=== PATIENT | male | born 1995 | race Caucasian/White ===

== ENCOUNTER 2017-10-07 14:35 | Inpatient (IN) | payer OTHER ==
[~2017-10-07] VITALS: Ht 175.3 cm; Wt 81.9 kg
[2017-10-07] MEDS ORDERED: SODIUM CHLORIDE 0.9% 1,000ML IVBOLUS ONE (15:00)
[2017-10-07] MEDS ORDERED: SODIUM CHLORIDE FLUSH 10ML SYR IVF ONE (15:00)
[2017-10-07 15:15] LABS: BASOPHILS # (AUTO) 0.07 x10^3/uL (0-0.1); BASOPHILS % (AUTO) 0 % (0-1); EOSINOPHILS # (AUTO) 0.08 x10^3/uL (0-0.4); EOSINOPHILS % (AUTO) 0 % (1-7); LYMPHOCYTES # (AUTO) 2.23 x10^3/uL (1-3.4); LYMPHOCYTES % (AUTO) 13 % (22-44); MD NO; MEAN CORPUSCULAR HEMOGLOBIN 30.1 pg (27.5-34.5); MEAN CORPUSCULAR HGB CONC 33.9 g/dL (33.2-36.2); MEAN PLATELET VOLUME 8.3 fL (7.4-10.4); MONOCYTES # (AUTO) 0.85 x10^3/uL (0.2-0.8); MONOCYTES % (AUTO) 5 % (2-9); NEUTROPHILS # (AUTO) 14.01 x10^3/uL (1.8-6.8); NEUTROPHILS % (AUTO) 81 % (42-75); PLATELET COUNT 336 x10^3/uL (130-400); RED BLOOD COUNT 5.34 x10^6/uL (4.38-5.82); RED CELL DISTRIBUTION WIDTH 12.1 % (9.4-14.8)
[2017-10-07 15:23] LABS: ALBUMIN 3.9 g/dL (3.4-5.0); ANION GAP 9 mmol/L (5-15); CALCIUM 9.3 mg/dL (8.5-10.1); CHLORIDE 107 mmol/L (98-107)
[2017-10-07 15:27] LABS: ALANINE AMINOTRANSFERASE 65 U/L (12-78); ALKALINE PHOSPHATASE 99 U/L (45-117); BILIRUBIN,TOTAL 0.9 mg/dL (0.2-1.0); CREATININE 1.07 mg/dL (0.7-1.3); TOTAL PROTEIN 8.9 g/dL (6.4-8.2)
[2017-10-07] MEDS ORDERED: PIPERACILLIN/TAZO/PMX 4.5GM 100 ML IV ONE (15:30)
[2017-10-07 16:12] LABS: MICROSCOPIC INDICATED
[2017-10-07 16:14] LABS: CULTURE INDICATED? NO
[2017-10-07] MEDS ORDERED: MIDAZOLAM 1 MG/ML, 2ML ONE (16:31)
[2017-10-07] MEDS ORDERED: FENTANYL PF 250 MCG/5ML ONE ×2 (16:31→17:16)
[2017-10-07] MEDS ORDERED: BUPIVACAINE/PF 0.5% ONE (16:33)
[2017-10-07] MEDS ORDERED: EPINEPHRINE 1 MG/ML, 1ML ONE (16:33)
[2017-10-07] MEDS ORDERED: PROPOFOL 10 MG/ML, 20ML ONE ×2 (17:17)
[2017-10-07] MEDS ORDERED: SUCCINYLCHOLINE 20 MG/ML, 10ML ONE (17:20)
[2017-10-07] MEDS ORDERED: DEXAMETHASONE 4 MG/ML, 1ML ONE (17:20)
[2017-10-07] MEDS ORDERED: ONDANSETRON 2MG/ML, 2ML ONE (17:20)
[2017-10-07] MEDS ORDERED: EPHEDRINE 50 MG/ML, 1ML IVPush PRN (17:30)
[2017-10-07] MEDS ORDERED: PROMETHAZINE 25 MG/ML, 1ML IV PRN (17:30)
[2017-10-07] MEDS ORDERED: OXYcodone 5 MG/5 ML ORAL.SOL UDC PO PRN (17:30)
[2017-10-07] MEDS ORDERED: DIPHENHYDRAMINE 50 MG/ML, 1ML IVPush PRN (17:30)
[2017-10-07] MEDS ORDERED: PROMETHAZINE 25 MG SUPP PR PRN (17:30)
[2017-10-07] MEDS ORDERED: EPHEDRINE 50 MG/ML, 1ML IM PRN (17:30)
[2017-10-07] MEDS ORDERED: MORPHINE SULFATE 4 MG/ML, 1ML IVPush PRN (17:30)
[2017-10-07] MEDS ORDERED: ONDANSETRON ODT 8 MG PO PRN (17:30)
[2017-10-07] MEDS ORDERED: ACETAMINOPHEN 325 MG TABLET PO PRN ×2 (17:30→20:00)
[2017-10-07] MEDS ORDERED: PROMETHAZINE 12.5 MG SUPP PR PRN (17:30)
[2017-10-07] MEDS ORDERED: FENTANYL PF 100 MCG/2ML IV PRN (17:30)
[2017-10-07] MEDS ORDERED: PROCHLORPERAZINE 5 MG/ML, 2ML IV PRN (17:30)
[2017-10-07] MEDS ORDERED: LABETALOL 5MG/ML, 20ML IV PRN (17:30)
[2017-10-07] MEDS ORDERED: MIDAZOLAM 1 MG/ML, 2ML IV PRN (17:30)
[2017-10-07] MEDS ORDERED: ACETAMINOPHEN 650 MG/20.3 ML UDC ONE (20:08)
[2017-10-07] MEDS ORDERED: OXYcodone 5 MG/5 ML ORAL.SOL UDC ONE (20:08)
[2017-10-07] MEDS ORDERED: FENTANYL PF 100 MCG/2ML ONE (20:08)
[2017-10-07] MEDS ORDERED: MEPERIDINE/PF 50 MG/ML ONE (20:13)
[2017-10-07] MEDS: MEPERIDINE/PF 25MG/0.5ML IVPush PRN ×2 (20:15→20:42)
[2017-10-07 22:00] VITALS: BP 123/75
[2017-10-07] MEDS: SODIUM CHLORIDE 0.9% 1,000 ML IV SCH (22:14)
[2017-10-07] MEDS: CEFOTETAN PMX 1GM/50ML 50 ML IVPB SCH (22:24)
[2017-10-07] MEDS: METRONIDAZOLE PMX 500MG/100ML 100 ML IVPB SCH (23:26)
[2017-10-07] MEDS: D5%-0.45NACL+KCL 20MEQ 1,000 ML IV SCH (23:26)
[2017-10-08 00:37] VITALS: BP 147/82
[2017-10-08] MEDS: ONDANSETRON 2MG/ML, 2ML IVPush PRN (00:42)
[2017-10-08] MEDS: SODIUM CHLORIDE 0.9% 1,000 ML IV SCH (02:30)
[2017-10-08 04:44] VITALS: BP 154/95
[2017-10-08 05:34] LABS: MEAN CORPUSCULAR HGB CONC 33.9 g/dL (33.2-36.2); MEAN CORPUSCULAR VOLUME 88.5 fL (81-97); MEAN PLATELET VOLUME 8.6 fL (7.4-10.4); PLATELET COUNT 288 x10^3/uL (130-400); RED BLOOD COUNT 4.86 x10^6/uL (4.38-5.82); RED CELL DISTRIBUTION WIDTH 12.1 % (9.4-14.8)
[2017-10-08 06:12] LABS: BASOPHILS # (AUTO) 0.01 x10^3/uL (0-0.1); BASOPHILS % (AUTO) 0 % (0-1); EOSINOPHILS % (AUTO) 0 % (1-7); LYMPHOCYTES # (AUTO) 1.03 x10^3/uL (1-3.4); LYMPHOCYTES % (AUTO) 5 % (22-44); MD SCAN; MONOCYTES # (AUTO) 1.29 x10^3/uL (0.2-0.8); MONOCYTES % (AUTO) 6 % (2-9); NEUTROPHILS # (AUTO) 18.25 x10^3/uL (1.8-6.8); NEUTROPHILS % (AUTO) 89 % (42-75)
[2017-10-08] MEDS: METRONIDAZOLE PMX 500MG/100ML 100 ML IVPB SCH ×2 (06:32→15:36)
[2017-10-08 08:11] VITALS: BP 149/89
[2017-10-08] MEDS: CEFOTETAN PMX 1GM/50ML 50 ML IVPB SCH ×2 (10:53→23:27)
[2017-10-08] MEDS: D5%-0.45NACL+KCL 20MEQ 1,000 ML IV SCH (11:51)
[2017-10-08 13:39] VITALS: BP 134/80
[2017-10-08 19:57] VITALS: BP 137/82
[2017-10-08] MEDS: ACETAMINOPHEN 325 MG TABLET PO PRN (20:17)
[2017-10-09] MEDS: D5%-0.45NACL+KCL 20MEQ 1,000 ML IV SCH ×4 (00:10→20:09)
[2017-10-09] MEDS: METRONIDAZOLE PMX 500MG/100ML 100 ML IVPB SCH ×4 (00:11→23:38)
[2017-10-09 02:00] VITALS: BP 122/68
[2017-10-09] MEDS: ACETAMINOPHEN 325 MG TABLET PO PRN ×2 (04:05→10:32)
[2017-10-09 05:32] LABS: MEAN CORPUSCULAR HEMOGLOBIN 30.3 pg (27.5-34.5); MEAN CORPUSCULAR HGB CONC 33.7 g/dL (33.2-36.2); MEAN CORPUSCULAR VOLUME 89.9 fL (81-97); MEAN PLATELET VOLUME 8.5 fL (7.4-10.4); PLATELET COUNT 279 x10^3/uL (130-400); RED BLOOD COUNT 4.95 x10^6/uL (4.38-5.82); RED CELL DISTRIBUTION WIDTH 12.8 % (9.4-14.8)
[2017-10-09 05:45] VITALS: BP 129/85
[2017-10-09 06:00] LABS: BASOPHILS # (AUTO) 0.04 x10^3/uL (0-0.1); BASOPHILS % (AUTO) 0 % (0-1); EOSINOPHILS # (AUTO) 0.05 x10^3/uL (0-0.4); EOSINOPHILS % (AUTO) 0 % (1-7); LYMPHOCYTES % (AUTO) 10 % (22-44); MD SCAN; MONOCYTES % (AUTO) 9 % (2-9); NEUTROPHILS # (AUTO) 13.48 x10^3/uL (1.8-6.8); NEUTROPHILS % (AUTO) 81 % (42-75)
[2017-10-09] MEDS: ONDANSETRON 2MG/ML, 2ML IVPush PRN ×2 (07:55→17:29)
[2017-10-09] MEDS: CEFOTETAN PMX 1GM/50ML 50 ML IVPB SCH ×2 (10:32→22:27)
[2017-10-09 13:47] VITALS: BP 114/76
[2017-10-09 18:38] VITALS: BP 122/86
[2017-10-10 01:31] VITALS: BP 129/87
[2017-10-10] MEDS: ACETAMINOPHEN 325 MG TABLET PO PRN (02:10)
[2017-10-10] MEDS: D5%-0.45NACL+KCL 20MEQ 1,000 ML IV SCH ×3 (06:43→23:41)
[2017-10-10] MEDS: METRONIDAZOLE PMX 500MG/100ML 100 ML IVPB SCH ×2 (07:57→16:22)
[2017-10-10 08:44] VITALS: BP 119/77
[2017-10-10] MEDS: CEFOTETAN PMX 1GM/50ML 50 ML IVPB SCH ×2 (10:33→23:41)
[2017-10-10] MEDS: ONDANSETRON 2MG/ML, 2ML IVPush PRN ×2 (12:00→20:39)
[2017-10-10 14:00] VITALS: BP 137/84
[2017-10-10] MEDS: morphine SULFATE 10 MG/ML, 1ML IVPush PRN ×2 (15:57→22:06)
[2017-10-10] MEDS: OXYcodone/APAP 7.5/325MG TABLET PO PRN ×3 (15:57→22:06)
[2017-10-10 20:24] VITALS: BP 123/79
[2017-10-11] MEDS: METRONIDAZOLE PMX 500MG/100ML 100 ML IVPB SCH ×3 (00:13→18:11)
[2017-10-11 00:45] VITALS: BP 134/85
[2017-10-11] MEDS: ONDANSETRON 2MG/ML, 2ML IVPush PRN ×3 (04:24→15:18)
[2017-10-11 05:47] LABS: BASOPHILS # (AUTO) 0.04 x10^3/uL (0-0.1); BASOPHILS % (AUTO) 0 % (0-1); EOSINOPHILS # (AUTO) 0.25 x10^3/uL (0-0.4); EOSINOPHILS % (AUTO) 2 % (1-7); LYMPHOCYTES # (AUTO) 1.62 x10^3/uL (1-3.4); LYMPHOCYTES % (AUTO) 10 % (22-44); MD NO; MEAN CORPUSCULAR HEMOGLOBIN 29.9 pg (27.5-34.5); MEAN CORPUSCULAR VOLUME 90.8 fL (81-97); MEAN PLATELET VOLUME 8.4 fL (7.4-10.4); MONOCYTES # (AUTO) 1.05 x10^3/uL (0.2-0.8); MONOCYTES % (AUTO) 7 % (2-9); NEUTROPHILS % (AUTO) 81 % (42-75); PLATELET COUNT 360 x10^3/uL (130-400); RED BLOOD COUNT 4.84 x10^6/uL (4.38-5.82); RED CELL DISTRIBUTION WIDTH 12.4 % (9.4-14.8)
[2017-10-11 06:50] VITALS: BP 129/86
[2017-10-11] MEDS: D5%-0.45NACL+KCL 20MEQ 1,000 ML IV SCH ×3 (08:48→20:35)
[2017-10-11] MEDS: morphine SULFATE 10 MG/ML, 1ML IVPush PRN (09:29)
[2017-10-11] MEDS: CEFOTETAN PMX 1GM/50ML 50 ML IVPB SCH ×2 (11:50→22:44)
[2017-10-11] MEDS: LORazepam 1MG TABLET PO PRN ×2 (13:11→22:47)
[2017-10-11] MEDS ORDERED: HYDROmorphone 2 MG/ML, 1ML ONE ×2 (15:12→22:37)
[2017-10-11] MEDS: HYDROmorphone 1 MG/ML, 1ML IV PRN ×2 (15:17→22:48)
[2017-10-11 19:33] VITALS: BP 130/82
[2017-10-12] MEDS: METRONIDAZOLE PMX 500MG/100ML 100 ML IVPB SCH ×3 (01:46→17:52)
[2017-10-12 02:21] VITALS: BP 122/74
[2017-10-12] MEDS: D5%-0.45NACL+KCL 20MEQ 1,000 ML IV SCH ×3 (04:00→17:39)
[2017-10-12] MEDS: LORazepam 1MG TABLET PO PRN ×2 (05:05→19:32)
[2017-10-12 07:00] VITALS: BP 138/88
[2017-10-12] MEDS: CEFOTETAN PMX 1GM/50ML 50 ML IVPB SCH ×2 (10:37→22:41)
[2017-10-12 12:13] LABS: BASOPHILS # (AUTO) 0.05 x10^3/uL (0-0.1); BASOPHILS % (AUTO) 0 % (0-1); EOSINOPHILS # (AUTO) 0.25 x10^3/uL (0-0.4); EOSINOPHILS % (AUTO) 2 % (1-7); LYMPHOCYTES # (AUTO) 1.86 x10^3/uL (1-3.4); LYMPHOCYTES % (AUTO) 11 % (22-44); MD NO; MEAN CORPUSCULAR HEMOGLOBIN 30.4 pg (27.5-34.5); MEAN CORPUSCULAR HGB CONC 33.8 g/dL (33.2-36.2); MEAN PLATELET VOLUME 7.8 fL (7.4-10.4); MONOCYTES # (AUTO) 1.27 x10^3/uL (0.2-0.8); MONOCYTES % (AUTO) 8 % (2-9); NEUTROPHILS # (AUTO) 12.86 x10^3/uL (1.8-6.8); NEUTROPHILS % (AUTO) 79 % (42-75); PLATELET COUNT 392 x10^3/uL (130-400); RED BLOOD COUNT 4.69 x10^6/uL (4.38-5.82); RED CELL DISTRIBUTION WIDTH 12.6 % (9.4-14.8)
[2017-10-12 13:00] VITALS: BP 122/78
[2017-10-12 20:06] VITALS: BP 125/87
[2017-10-12] MEDS ORDERED: HYDROmorphone 2 MG/ML, 1ML ONE (21:37)
[2017-10-12] MEDS: HYDROmorphone 1 MG/ML, 1ML IV PRN (21:41)
[2017-10-13] MEDS: D5%-0.45NACL+KCL 20MEQ 1,000 ML IV SCH ×3 (00:17→20:03)
[2017-10-13] MEDS: METRONIDAZOLE PMX 500MG/100ML 100 ML IVPB SCH ×2 (01:35→10:01)
[2017-10-13 02:30] VITALS: BP 131/90
[2017-10-13] MEDS: ACETAMINOPHEN 325 MG TABLET PO PRN ×2 (06:07→18:05)
[2017-10-13] MEDS: LORazepam 1MG TABLET PO PRN (06:07)
[2017-10-13 07:03] VITALS: BP 144/93
[2017-10-13] MEDS ORDERED: OMNIPAQUE 350 MG/ML, 100ML BOTTLE ONE (09:18)
[2017-10-13] MEDS: PIPERACILLIN/TAZO/PMX 4.5GM 100 ML IV SCH ×2 (11:17→20:03)
[2017-10-13 15:40] VITALS: BP 119/80
[2017-10-13 18:44] VITALS: BP 134/90
[2017-10-14] MEDS ORDERED: HYDROmorphone 2 MG/ML, 1ML ONE ×3 (01:04→23:56)
[2017-10-14] MEDS: LORazepam 1MG TABLET PO PRN ×2 (01:30→03:03)
[2017-10-14] MEDS: HYDROmorphone 1 MG/ML, 1ML IV PRN (01:30)
[2017-10-14] MEDS: PIPERACILLIN/TAZO/PMX 4.5GM 100 ML IV SCH ×3 (03:03→20:05)
[2017-10-14] MEDS: D5%-0.45NACL+KCL 20MEQ 1,000 ML IV SCH (06:35)
[2017-10-14 08:11] VITALS: BP 149/88
[2017-10-14 14:13] VITALS: BP 129/82
[2017-10-14 17:15] LABS: CLOSTRIDIUM DIFFICILE ANTIGEN NEGATIVE; CLOSTRIDIUM DIFFICILE TOXIN NEGATIVE (Negative)
[2017-10-14 19:26] VITALS: BP 113/73
[2017-10-14] MEDS: ACETAMINOPHEN 325 MG TABLET PO PRN (20:19)
[2017-10-15] MEDS: PIPERACILLIN/TAZO/PMX 4.5GM 100 ML IV SCH ×3 (03:46→20:21)
[2017-10-15 05:30] LABS: BASOPHILS # (AUTO) 0.04 x10^3/uL (0-0.1); BASOPHILS % (AUTO) 0 % (0-1); EOSINOPHILS # (AUTO) 0.42 x10^3/uL (0-0.4); EOSINOPHILS % (AUTO) 4 % (1-7); LYMPHOCYTES # (AUTO) 1.53 x10^3/uL (1-3.4); LYMPHOCYTES % (AUTO) 15 % (22-44); MD NO; MEAN CORPUSCULAR HEMOGLOBIN 30.5 pg (27.5-34.5); MEAN CORPUSCULAR HGB CONC 33.4 g/dL (33.2-36.2); MEAN CORPUSCULAR VOLUME 91.1 fL (81-97); MEAN PLATELET VOLUME 7.9 fL (7.4-10.4); MONOCYTES # (AUTO) 1.01 x10^3/uL (0.2-0.8); MONOCYTES % (AUTO) 10 % (2-9); NEUTROPHILS # (AUTO) 6.98 x10^3/uL (1.8-6.8); NEUTROPHILS % (AUTO) 70 % (42-75); PLATELET COUNT 437 x10^3/uL (130-400); RED BLOOD COUNT 5.26 x10^6/uL (4.38-5.82); RED CELL DISTRIBUTION WIDTH 12.6 % (9.4-14.8)
[2017-10-15 13:44] VITALS: BP 136/87
[2017-10-15] MEDS: ACETAMINOPHEN 325 MG TABLET PO PRN (17:50)
[2017-10-15 19:50] VITALS: BP 112/72
[2017-10-15] MEDS ORDERED: HYDROmorphone 2 MG/ML, 1ML ONE (23:53)
[2017-10-15] MEDS: HYDROmorphone 1 MG/ML, 1ML IV PRN ×2 (23:57)
[2017-10-16 00:33] VITALS: BP 113/71
[2017-10-16] MEDS: PIPERACILLIN/TAZO/PMX 4.5GM 100 ML IV SCH ×2 (04:22→11:15)
[2017-10-16 08:14] VITALS: BP 120/79
[2017-10-16 13:34] VITALS: BP 134/87
[2017-10-16] MEDS: ACETAMINOPHEN 325 MG TABLET PO PRN (17:35)
[2017-10-16 20:28] VITALS: BP 114/73
[2017-10-16] MEDS: OXYcodone/APAP 7.5/325MG TABLET PO PRN (21:58)
[2017-10-16] MEDS: AMOXICILLIN/CLAV 875-125MG TABLET PO SCH (21:58)
[2017-10-17 03:03] VITALS: BP 121/79
[2017-10-17 07:07] VITALS: BP 129/87
[2017-10-17] MEDS ORDERED: OXYC-306 PO (09:22)
[2017-10-17] MEDS ORDERED: AMOX1TAB64 PO (09:23)
[2017-10-17] MEDS ORDERED: METR500T PO (09:25)
[2017-10-17 10:32] VITALS: BP 131/90
[2017-10-17] MEDS: AMOXICILLIN/CLAV 875-125MG TABLET PO SCH (10:33)
== END 2017-10-17 11:05 | disposition home or self-care (01) | DRG 853 ==
LOC: OR 16:43 → EDIP 16:44 → OR 16:52 → 4NOR 21:50 → DCLOUNGE 10-17 10:40
PROVIDERS: ADMIT Surgery; ATTEND Surgery
PROC: 0DTJ0ZZ Resection of Appendix, Open Approach (ICD-10-PCS; 2017-10-07)
PROC: 0DJD4ZZ Inspection of Lower Intestinal Tract, Percutaneous Endoscopic Approach (ICD-10-PCS; principal; 2017-10-07 16:30)
DX: A41.9 Sepsis, unspecified organism (principal); K35.3 Acute appendicitis with localized peritonitis; K56.41 Fecal impaction; Z53.31 Laparoscopic surgical procedure converted to open procedure
CPT/HCPCS: 36415; 74018; 74177; 80053; 81001; 85025; 87324; 88304; 96365; C1729; G0378; J0171; J1100; J1170; J2175; J2250; J2270; J2405; J2543; J2704; J3010; J3490; Q9967; J0330; J3480; J7030; S0074

== ENCOUNTER 2018-01-01 15:16 | Emergency (ER) | payer OTHER ==
[~2018-01-01] VITALS: Ht 175.3 cm; Wt 102.8 kg
[~2018-01-01 15:16] MED LIST: AMOX1TAB64 PO; METR500T PO; OXYC-306 PO
[2018-01-01 15:57] LABS: BASOPHILS # (AUTO) 0.04 x10^3/uL (0-0.1); BASOPHILS % (AUTO) 0 % (0-1); EOSINOPHILS % (AUTO) 2 % (1-7); LYMPHOCYTES # (AUTO) 2.93 x10^3/uL (1-3.4); LYMPHOCYTES % (AUTO) 23 % (22-44); MD NO; MEAN CORPUSCULAR HEMOGLOBIN 30.4 pg (27.5-34.5); MEAN CORPUSCULAR HGB CONC 34.1 g/dL (33.2-36.2); MEAN CORPUSCULAR VOLUME 89.1 fL (81-97); MEAN PLATELET VOLUME 8.5 fL (7.4-10.4); MONOCYTES # (AUTO) 1.02 x10^3/uL (0.2-0.8); MONOCYTES % (AUTO) 8 % (2-9); NEUTROPHILS % (AUTO) 67 % (42-75); PLATELET COUNT 345 x10^3/uL (130-400); RED BLOOD COUNT 5.23 x10^6/uL (4.38-5.82)
[2018-01-01 16:06] LABS: ALANINE AMINOTRANSFERASE 48 U/L (12-78); ALBUMIN 3.6 g/dL (3.4-5.0); ANION GAP 8 mmol/L (5-15); CALCIUM 9.1 mg/dL (8.5-10.1); CHLORIDE 109 mmol/L (98-107); CREATININE 0.92 mg/dL (0.7-1.3)
[2018-01-01 16:08] LABS: ALKALINE PHOSPHATASE 87 U/L (45-117); BILIRUBIN,TOTAL 0.4 mg/dL (0.2-1.0); TOTAL PROTEIN 8.5 g/dL (6.4-8.2)
[2018-01-01 16:18] VITALS: BP 142/89
[2018-01-01 16:22] LABS: CULTURE INDICATED? NO; MICROSCOPIC NOT IND
== END 2018-01-01 17:12 | disposition home or self-care (01) ==
LOC: ED 17:00
DX: R10.84 Generalized abdominal pain (principal); R11.0 Nausea
CPT/HCPCS: 36415; 74021; 80053; 81003; 83690; 85025; 99285

== ENCOUNTER 2018-01-02 16:32 | Emergency (ER) | payer OTHER ==
[~2018-01-02] VITALS: Ht 175.3 cm; Wt 102.1 kg
[2018-01-02 16:44] VITALS: BP 149/105
[2018-01-02 17:02] LABS: BASOPHILS # (AUTO) 0.04 x10^3/uL (0-0.1); BASOPHILS % (AUTO) 0 % (0-1); EOSINOPHILS # (AUTO) 0.26 x10^3/uL (0-0.4); EOSINOPHILS % (AUTO) 2 % (1-7); LYMPHOCYTES # (AUTO) 3.01 x10^3/uL (1-3.4); LYMPHOCYTES % (AUTO) 23 % (22-44); MD NO; MEAN CORPUSCULAR HEMOGLOBIN 30.1 pg (27.5-34.5); MEAN CORPUSCULAR HGB CONC 33.8 g/dL (33.2-36.2); MEAN CORPUSCULAR VOLUME 89.2 fL (81-97); MEAN PLATELET VOLUME 8.4 fL (7.4-10.4); MONOCYTES % (AUTO) 8 % (2-9); NEUTROPHILS # (AUTO) 9.04 x10^3/uL (1.8-6.8); NEUTROPHILS % (AUTO) 68 % (42-75); PLATELET COUNT 332 x10^3/uL (130-400); RED BLOOD COUNT 5.44 x10^6/uL (4.38-5.82); RED CELL DISTRIBUTION WIDTH 13.1 % (9.4-14.8)
[2018-01-02] MEDS ORDERED: ONDANSETRON 2MG/ML, 2ML ONE (17:10)
[2018-01-02] MEDS ORDERED: HYDROmorphone 2 MG/ML, 1ML ONE (17:11)
[2018-01-02 17:12] LABS: ALBUMIN 3.9 g/dL (3.4-5.0); ANION GAP 9 mmol/L (5-15); CALCIUM 9.3 mg/dL (8.5-10.1); CHLORIDE 106 mmol/L (98-107)
[2018-01-02 17:17] LABS: ALANINE AMINOTRANSFERASE 53 U/L (12-78); ALKALINE PHOSPHATASE 93 U/L (45-117); BILIRUBIN,TOTAL 0.4 mg/dL (0.2-1.0); CREATININE 0.92 mg/dL (0.7-1.3)
[2018-01-02] MEDS ORDERED: ONDANSETRON 2MG/ML, 2ML IVPush ONE (17:30)
[2018-01-02] MEDS ORDERED: SODIUM CHLORIDE 0.9% 1,000ML IVBOLUS ONE (17:30)
[2018-01-02] MEDS ORDERED: HYDROmorphone 2 MG/ML, 1ML IVPush PRN (17:30)
[2018-01-02 17:41] LABS: CULTURE INDICATED? NO; MICROSCOPIC NOT IND
== END 2018-01-02 19:57 | disposition home or self-care (01) ==
LOC: ED 19:51
DX: I88.0 Nonspecific mesenteric lymphadenitis (principal); R10.84 Generalized abdominal pain
CPT/HCPCS: 36415; 74177; 80053; 81003; 83690; 85025; 93005; 96374; 96375; 99285; J1170; J2405; J7030

== ENCOUNTER 2018-01-11 16:27 | Emergency (ER) | payer SELFPAY ==
[~2018-01-11] VITALS: Ht 175.3 cm; Wt 100.1 kg
[2018-01-11 16:50] LABS: BASOPHILS # (AUTO) 0.05 x10^3/uL (0-0.1); BASOPHILS % (AUTO) 0 % (0-1); EOSINOPHILS # (AUTO) 0.29 x10^3/uL (0-0.4); EOSINOPHILS % (AUTO) 2 % (1-7); LYMPHOCYTES # (AUTO) 2.83 x10^3/uL (1-3.4); LYMPHOCYTES % (AUTO) 20 % (22-44); MD NO; MEAN CORPUSCULAR HEMOGLOBIN 29.9 pg (27.5-34.5); MEAN CORPUSCULAR HGB CONC 33.4 g/dL (33.2-36.2); MEAN CORPUSCULAR VOLUME 89.4 fL (81-97); MEAN PLATELET VOLUME 8.2 fL (7.4-10.4); MONOCYTES # (AUTO) 0.95 x10^3/uL (0.2-0.8); MONOCYTES % (AUTO) 7 % (2-9); NEUTROPHILS # (AUTO) 9.73 x10^3/uL (1.8-6.8); NEUTROPHILS % (AUTO) 70 % (42-75); PLATELET COUNT 426 x10^3/uL (130-400); RED BLOOD COUNT 5.57 x10^6/uL (4.38-5.82); RED CELL DISTRIBUTION WIDTH 12.8 % (9.4-14.8)
[2018-01-11 17:02] LABS: ALANINE AMINOTRANSFERASE 53 U/L (12-78); ALBUMIN 3.9 g/dL (3.4-5.0); ANION GAP 9 mmol/L (5-15); CALCIUM 9.3 mg/dL (8.5-10.1); CHLORIDE 105 mmol/L (98-107); CREATININE 0.88 mg/dL (0.7-1.3)
[2018-01-11 17:05] LABS: ALKALINE PHOSPHATASE 95 U/L (45-117); BILIRUBIN,TOTAL 0.3 mg/dL (0.2-1.0); TOTAL PROTEIN 9.3 g/dL (6.4-8.2)
[2018-01-11 17:26] LABS: MICROSCOPIC NOT IND
[2018-01-11 17:37] LABS: CULTURE INDICATED? NO
[2018-01-11] MEDS ORDERED: DIPHENHYDRAMINE 25 MG CAPSULE ONE (18:29)
[2018-01-11] MEDS ORDERED: DIPHENHYDRAMINE 25 MG CAPSULE PO ONE (18:30)
[2018-01-11 19:22] VITALS: BP 139/91
== END 2018-01-11 19:31 | disposition home or self-care (01) ==
LOC: ED 18:19
DX: B09 Unspecified viral infection characterized by skin and mucous membrane lesions (principal); M54.9 Dorsalgia, unspecified; R10.9 Unspecified abdominal pain; R11.0 Nausea; Z87.19 Personal history of other diseases of the digestive system
CPT/HCPCS: 36415; 80053; 81003; 83690; 85025; 99284; J7512; Q0163